=== PATIENT | female | born 1985 | race Caucasian/White ===

== ENCOUNTER 2019-03-03 07:25 | Day surgery (SDC) | payer MEDICAID ==
[2019-03-02 12:24] LABS: BASOPHILS % (AUTO) 0.8 % (0-1); EOSINOPHILS # (AUTO) 0.4 X10'3 (0-0.9); EOSINOPHILS % (AUTO) 7.4 % (0-6); HEMATOCRIT 39.5 % (35.0-45.0); HEMOGLOBIN 13.1 g/dl (12.0-16.0); LYMPHOCYTES # (AUTO) 1.7 X10'3 (1.1-4.8); LYMPHOCYTES % (AUTO) 31.3 % (21-51); MEAN CORPUSCULAR HEMOGLOBIN 30.1 PG (27.0-31.0); MEAN CORPUSCULAR HGB CONC 33.1 g/dL (33.0-36.5); MEAN CORPUSCULAR VOLUME 90.9 FL (78-98); MEAN PLATELET VOLUME 9.3 FL (7.4-10.4); MONOCYTES # (AUTO) 0.3 X10'3 (0-0.9); MONOCYTES % (AUTO) 6.1 % (2-12); NEUTROPHILS # (AUTO) 2.9 X10'3 (1.8-7.7); NEUTROPHILS % (AUTO) 54.4 % (42-75); PLATELET COUNT 202 X10'3 (140-440); RED BLOOD COUNT 4.34 X10'6 (4.20-5.60); RED CELL DISTRIBUTION WIDTH 13.5 % (11.5-14.5); WHITE BLOOD COUNT 5.3 X10'3 (4.5-11.0)
[2019-03-02 12:39] LABS: PARTIAL THROMBOPLASTIN TIME 28 SECONDS (22-32)
[2019-03-02 13:38] LABS: ALANINE AMINOTRANSFERASE 21 U/L (12-78); ALBUMIN 3.7 G/DL (3.4-5.0); ALBUMIN/GLOBULIN RATIO 1.1 (1.1-1.5); ALKALINE PHOSPHATASE 82 IU/L (46-116); ANION GAP 9 (8-16); ASPARTATE AMINO TRANSFERASE 17 U/L (10-37); BILIRUBIN,TOTAL 0.4 MG/DL (0.1-1.0); BLOOD UREA NITROGEN 7 MG/DL (7-18); BUN/CREATININE RATIO 10.1 (6.6-38.0); CALCIUM 8.6 MG/DL (8.5-10.1); CHLORIDE 108 MMOL/L (99-107); CREATININE 0.69 MG/DL (0.40-0.90); GLUCOSE 93 MG/DL (70-104); POTASSIUM 3.7 MMOL/L (3.5-5.1); SODIUM 143 MMOL/L (135-145); TOTAL CARBON DIOXIDE 26.5 MMOL/L (24-32); TOTAL PROTEIN 7.1 G/DL (6.4-8.2); eGFR > 90 ML/MIN
[2019-03-03] VITALS (12 sets, daily range): BP systolic 91–123; BP diastolic 53–67
[~2019-03-03] VITALS: Ht 160 cm; Wt 79.5 kg
[2019-03-03] MEDS ORDERED: nitroGLYCERIN 0.4mg SUBLingual tab SL PRN (07:50)
[2019-03-03] MEDS ORDERED: LORazepam 0.5 MG tablet PO PRN (07:50)
[2019-03-03] MEDS ORDERED: diphenhydrAMINE 25mg capsule PO PRN (07:50)
[2019-03-03] MEDS ORDERED: normal saline 1,000 ML IV SCH (07:50)
[2019-03-03] MEDS ORDERED: LORA1TAB PO (08:04)
[2019-03-03] MEDS ORDERED: LEVO125T PO (08:04)
[2019-03-03] MEDS ORDERED: OMEP-50 PO (08:04)
[2019-03-03] MEDS ORDERED: LIDOcaine 1% (10mg/ml)w/preservative injection 20ml MDV ONE (09:55)
[2019-03-03] MEDS ORDERED: midazolam 2 mg/2 ml injection ONE ×2 (09:55→10:36)
[2019-03-03] MEDS ORDERED: iohexol 350 MG/ML 50ML vial IV ONE (09:55)
[2019-03-03] MEDS ORDERED: iohexol 350MG/ML 100ml bottle IV ONE (09:55)
[2019-03-03] MEDS ORDERED: fentaNYL/PF 50MCG/1 ML 2ML syringe ONE ×2 (09:55→10:36)
[2019-03-03] MEDS ORDERED: proCHLORperazine 10 MG/2 ml inj ONE (10:46)
[2019-03-03] MEDS ORDERED: OXAZEpam 15mg capsule PO PRN (11:50)
[2019-03-03] MEDS ORDERED: proCHLORperazine 10 MG/2 ml inj IV PRN (11:50)
[2019-03-03] MEDS ORDERED: ondansetron/PF 4mg/2ml inj IV PRN (11:50)
== END 2019-03-03 18:00 | disposition home or self-care (01) ==
LOC: SSTAY O 07:25
PROVIDERS: ATTEND Internal Medicine Cardiovascular Disease
DX: R94.39 Abnormal result of other cardiovascular function study (principal); K21.9 Gastro-esophageal reflux disease without esophagitis; Z87.891 Personal history of nicotine dependence; Z79.899 Other long term (current) drug therapy; Z79.01 Long term (current) use of anticoagulants
CPT/HCPCS: 36415; 71046; 80053; 85025; 85610; 85730; 93458; 99152; 99153; C1769; J0780; J1644; J2001; J2250; J3010; J7030; Q0163; Q9967; A4620; A6258; C1760

== ENCOUNTER 2020-06-04 23:00 | Emergency (ER) | payer MEDICAID ==
[~2020-06-04] VITALS: Ht 160 cm; Wt 79.5 kg
[~2020-06-04 23:00] MED LIST: LEVO125T PO; LORA1TAB PO; OMEP-50 PO
[2020-06-04 23:33] LABS: BASOPHILS # (AUTO) 0.1 X10'3 (0-0.2); BASOPHILS % (AUTO) 0.7 % (0-1); EOSINOPHILS # (AUTO) 0.2 X10'3 (0-0.9); HEMOGLOBIN 13.4 g/dl (12.0-16.0); LYMPHOCYTES # (AUTO) 2.5 X10'3 (1.1-4.8); LYMPHOCYTES % (AUTO) 26.7 % (21-51); MEAN CORPUSCULAR HEMOGLOBIN 31.4 PG (27.0-31.0); MEAN CORPUSCULAR HGB CONC 34.3 g/dL (33.0-36.5); MEAN CORPUSCULAR VOLUME 91.5 FL (78-98); MEAN PLATELET VOLUME 9.5 FL (7.4-10.4); MONOCYTES # (AUTO) 0.6 X10'3 (0-0.9); MONOCYTES % (AUTO) 6.6 % (2-12); NEUTROPHILS # (AUTO) 6.1 X10'3 (1.8-7.7); PLATELET COUNT 185 X10'3 (140-440); RED BLOOD COUNT 4.27 X10'6 (4.20-5.60); RED CELL DISTRIBUTION WIDTH 13.2 % (11.5-14.5); WHITE BLOOD COUNT 9.5 X10'3 (4.5-11.0)
[2020-06-04 23:40] LABS: ALANINE AMINOTRANSFERASE 20 U/L (12-78); ALBUMIN/GLOBULIN RATIO 1.2 (1.1-1.5); ALKALINE PHOSPHATASE 67 IU/L (46-116); ANION GAP 10 (8-16); ASPARTATE AMINO TRANSFERASE 18 U/L (10-37); BILIRUBIN,TOTAL 0.5 MG/DL (0.1-1.0); BLOOD UREA NITROGEN 12 MG/DL (7-18); BUN/CREATININE RATIO 14.3 (6.6-38.0); CALCIUM 8.9 MG/DL (8.5-10.1); CHLORIDE 106 MMOL/L (99-107); CREATININE 0.84 MG/DL (0.40-0.90); GLUCOSE 96 MG/DL (70-104); POTASSIUM 3.7 MMOL/L (3.5-5.1); SODIUM 140 MMOL/L (135-145); TOTAL CARBON DIOXIDE 23.8 MMOL/L (24-32); TOTAL PROTEIN 7.4 G/DL (6.4-8.2); eGFR 77 ML/MIN
[2020-06-05 01:05] VITALS: BP 109/67
== END 2020-06-05 02:28 | disposition home or self-care (01) ==
LOC: ER 23:01
DX: R07.89 Other chest pain (principal); Z88.8 Allergy status to other drugs, medicaments and biological substances; Z79.899 Other long term (current) drug therapy
CPT/HCPCS: 36415; 71045; 80053; 83880; 84484; 85025; 93005; 99285

== ENCOUNTER 2020-12-20 10:30 | Outpatient (CLI) | payer MEDICAID | END 2020-12-20 23:59 | disposition home or self-care (01) | LOC: RT 10:30 | PROVIDERS: ATTEND Nurse Practitioner Family | DX: R06.02 Shortness of breath (principal) | CPT/HCPCS: 94010; 94727; 94729 ==